=== PATIENT | female | born 1945 | race Caucasian/White ===

== ENCOUNTER → 2016-06-14 16:55 | Outpatient (CLI) | payer MEDICARE ==
[2012-06-01 08:26] VITALS: BMI 19.1
== END | disposition home or self-care (01) ==
LOC: D.MAMMO 14:45
DX: Z12.31 Encounter for screening mammogram for malignant neoplasm of breast (principal)

== ENCOUNTER → 2016-08-09 17:11 | Outpatient (CLI) | payer MEDICARE ==
[2012-06-01 08:26] VITALS: BMI 19.1
== END | disposition home or self-care (01) ==
LOC: D.MAMMO 07-21 08:30 → D.US 07-21 09:30 → D.MAMMO 07-21 10:30
DX: R92.8 Other abnormal and inconclusive findings on diagnostic imaging of breast (principal)

== ENCOUNTER 2017-08-09 14:13 | Emergency (ER) | payer MEDICARE ==
[2012-06-01 08:26] VITALS: BMI 19.1
== END 2017-08-09 17:30 | disposition home or self-care (01) ==
LOC: D.ER 14:13
DX: R51 Headache (principal); M54.2 Cervicalgia; M25.50 Pain in unspecified joint; F17.200 Nicotine dependence, unspecified, uncomplicated

== ENCOUNTER → 2017-12-11 14:13 | Outpatient (CLI) | payer MEDICARE, OTHER ==
[2012-06-01 08:26] VITALS: BMI 19.1
== END | disposition home or self-care (01) ==
LOC: D.MRI 14:13
DX: G44.1 Vascular headache, not elsewhere classified (principal)

== ENCOUNTER 2018-12-25 10:37 | Outpatient (CLI) | payer MEDICARE, OTHER ==
[2012-06-01 08:26] VITALS: BMI 19.1
== END 2018-12-25 23:59 | disposition home or self-care (01) ==
LOC: D.MAMMO 10:37
PROVIDERS: ATTEND Clinical Nurse Specialist Family Health
DX: Z12.31 Encounter for screening mammogram for malignant neoplasm of breast (principal)

== ENCOUNTER 2020-06-27 11:50 | Emergency (ER) | payer MEDICARE, OTHER ==
[~2020-06-27] VITALS: Ht 154.9 cm; Wt 49.5 kg
[2020-06-27 11:59] VITALS: BP 114/81; Ht 154.9 cm; Wt 49.5 kg
[2020-06-27 12:35] LABS: BASOPHILS 0.2 % (0-2); EOSINOPHILS 0.8 % (0-7); HEMATOCRIT 47.8 % (36.0-48.0); IMMATURE GRANULOCYTES 0.2 % (0-5); LYMPHOCYTE ABS# 1.84 10x3/uL (1.18-3.74); LYMPHOCYTES 20.8 % (15-50); MCH 34.9 pg (26.0-34.0); MCHC 33.5 g/dL (31.0-37.0); MCV 104.4 fL (80.0-100.0); MEAN PLATELET VOLUME 11.4 fL (7.4-10.4); MONOCYTES 10.1 % (2-11); NEUTROPHILS 67.9 % (40-80); PLATELET COUNT 262 10x3/uL (130-400); RBC 4.58 10x6/uL (4.00-5.40); RDW 15.3 % (11.5-14.5); WBC 8.8 10x3/uL (4.8-10.8)
[2020-06-27 12:50] LABS: CALC OSMOLALITY 275 mosm/kg (275-300); CALCIUM 8.9 mg/dL (8.5-10.1); CARBON DIOXIDE 23.9 mmol/L (21.0-32.0); CHLORIDE - SERUM 103 mmol/L (98-107); CREATININE - SERUM 0.7 mg/dL (0.6-1.3); GLUCOSE 119 mg/dL (74-106); POTASSIUM - SERUM 3.7 mmol/L (3.5-5.1); SODIUM 137 mmol/L (136-145); UREA NITROGEN 16 mg/dL (7-18); eGFR NON AFRICAN AMERICAN 87 mL/min (90-120)
[2020-06-27 13:05] LABS: ALBUMIN 3.5 g/dL (3.4-5.0); ALKALINE PHOSPHATASE 52 U/L (30-120); ALT (SGPT) 10 U/L (10-68); AMYLASE - SERUM 79 U/L (25-115); BILIRUBIN - TOTAL 0.29 mg/dL (0.2-1.3); CREATINE KINASE 37 UL (21-215); LIPASE 211 U/L (73-393); PROTEIN - SERUM 7.3 g/dL (6.4-8.2); THYROID STIMULATING HORMONE 1.99 uIU/mL (0.36-3.74); TROPONIN-I < 0.017 ng/mL (0.000-0.060)
[2020-06-27 13:38] LABS: ERYTHROCYTE SEDIMENTATION RATE 5 mm/hr (0-30)
[2020-06-27 14:18] LABS: BILIRUBIN NEGATIVE (NEGATIVE); KETONE SMALL mg/dL (NEGATIVE); NITRITE NEGATIVE (NEGATIVE); UROBILINOGEN NORMAL mg/dL (< 2)
[2020-06-27] MEDS ORDERED: FLORASTOR250 MG PO (15:25)
[2020-06-27] MEDS ORDERED: PEPCID40 MG PO (15:26)
== END 2020-06-27 15:56 | disposition home or self-care (01) ==
LOC: D.ER 11:50
PROVIDERS: Family Medicine
DX: R53.1 Weakness (principal); K86.1 Other chronic pancreatitis; R53.81 Other malaise